=== PATIENT | male | born 1995 | race Caucasian/White ===

== ENCOUNTER 2016-11-30 18:03 | Emergency (ER) | payer BC ==
[~2016-11-30] VITALS: Ht 185.4 cm; Wt 83.6 kg
[2016-11-30 18:06] VITALS: TEMP 36.7; Ht 185.4 cm; Wt 83.6 kg
[2016-11-30] MEDS ORDERED: CEFAZOLIN SOD 1000MG/55 ML D5W IV STA (18:22)
[2016-11-30 18:42] LABS: BASO % 0.7 %; BASO ABS # 0.05 K/uL (0-0.2); COMPLETE YES; EOS % 6.6 %; HEMATOCRIT 37.4 % (42-52); IG% 0.4 %; LYMPH % 19.9 %; LYMPH ABS # 1.46 K/uL (1.2-3.4); MEAN CELL VOLUME 92.3 fL (80-100); MEAN CORPUSCULAR HEMOGLOBIN 31.9 pg (25-34); MEAN CORPUSCULAR HGB CONC 34.5 g/dl (32-36); MEAN PLATELET VOLUME 9.1 fL (7.4-10.4); MONO % 9.2 %; NEUT % 63.2 %; PLATELET COUNT 208 K/uL (130-400); RED BLOOD COUNT 4.05 M/uL (4.7-6.1); WHITE BLOOD COUNT 7.32 K/uL (4.8-10.8)
[2016-11-30 19:01] LABS: BUN/CREATININE RATIO 16.8 (10-20); CALCIUM 8.4 mg/dl (8.5-10.1); CREATININE 0.95 mg/dl (0.60-1.40); POTASSIUM 3.9 mmol/L (3.5-5.1)
--- NOTE | 2016-11-30 19:14 | DIAGNOSTIC IMAGING REPORT ---
RIGHT TIBIA/FIBULA 2 VIEWS ROUTINE CLINICAL HISTORY: 21 years-old Male presenting with right eval for fx Right. TECHNIQUE: Frontal and lateral views of the right lower leg were obtained. COMPARISON: None. FINDINGS: Knee joint and ankle mortise grossly intact. No acute fracture or malalignment. Regional soft tissues within normal limits. No significant degenerative change. IMPRESSION: No acute osseous injury of the right lower leg. Electronically signed by: Benton Srinivasan M.D. 11/30/2016 7:13 PM Dictated Date/Time: 11/30/2016 7:11 PM
--- NOTE | 2016-11-30 19:34 | DIAGNOSTIC IMAGING REPORT ---
RIGHT VENOUS DOPP LOWER EXT UNILAT CLINICAL HISTORY: 21 years-old Male presenting with right leg eval for dvt Right. TECHNIQUE: Real-time grayscale and color and spectral Doppler ultrasound imaging of the veins of the right lower extremity was performed. Compression and augmentation were also utilized. COMPARISON: None. FINDINGS: Right: Common femoral vein: Patent. Femoral vein: Patent. Greater saphenous vein: Patent. Popliteal vein: Patent. Calf veins: Patent. Other: None. IMPRESSION: No evidence of deep venous thrombosis. Electronically signed by: Benton Srinivasan M.D. 11/30/2016 7:32 PM Dictated Date/Time: 11/30/2016 7:31 PM
[2016-11-30] MEDS ORDERED: CEPH500C PO (19:44)
[2016-11-30] MEDS ORDERED: CEPHALEXIN 500MG HOME PACK 1 EA BTL PO ONE (19:45)
[2016-11-30 20:06] VITALS: BP 122/72; PULSE 96; O2SAT 98
--- NOTE | 2016-11-30 20:18 | EMERGENCY ROOM VISIT NOTE ---
History Report prepared by Jeferson: Veena Issa Under the Supervision of: Dr. Harlan Ortiz M.D. First contact with patient: 18:13 Chief Complaint: ANKLE PAIN Stated Complaint: HURT R ANKLE History of Present Illness The patient is a 21 year old male who presents to the Emergency Room with complaints of persistent right leg pain starting 2 days ago at around 1045. The patient was mountain biking to class. He went to jump a curb and his foot slipped and the pedal hit the back of his right leg above his ankle. He has had swelling and pain since. He did not have any other injuries. He went to urgent care yesterday where he had an X-ray of his right ankle which was normal. They checked his Achilles and was told there were no issues. He was told that his pain would improve. He has been using crutches. He has been keeping his leg elevated and applying ice, but has not had any improvement. He has been taking ibuprofen. His foot is swollen. He is having difficulty flexing his foot toward his head. He denies any fever or vomiting. His tetanus is up to date. Source of History: patient Onset: 2 days ago at 1045 Position: leg (right) Quality: other (pain, swelling) Timing: other (persistent) Associated Symptoms: No fevers, No vomiting Note: Pt reports foot swelling. Review of Systems See HPI for pertinent positives & negatives. A total of 10 systems reviewed and were otherwise negative. Past Medical & Surgical Medical Problems: (1) No significant past medical history Family History No pertinent family history stated. Social History Smoking Status: Former Smoker Marital Status: single Occupation Status: [employer] student Current/Historical Medications Scheduled Cephalexin Monohydrate (Keflex), 500 MG PO TID Allergies Coded Allergies: No Known Allergies (Unverified , 11/30/16) Physical Exam Vital Signs Date Time Temp Pulse Resp B/P (MAP) Pulse Ox O2 Delivery O2 Flow Rate FiO2 11/30/16 19:04 96 16 135/83 98 Room Air 11/30/16 18:06 36.7 80 20 156/68 98 Room Air Physical Exam Constitutional: Vital signs reviewed. Eyes: Pupils are equal round reactive to light. Conjunctiva are noninjected. ENT: Pharynx is clear without erythema or exudate. Mucous membranes are moist. Neck supple without meningeal signs. Respiratory: Clear to auscultation bilaterally. Breath sounds are equal bilaterally. Cardiovascular: Regular rate and rhythm. No rubs or gallops. GI: Soft, nondistended and nontender. Bowel sounds are present. Musculoskeletal: No peripheral edema. Tenderness along the posterior lower right calf over the Achilles tendon without signs of tendon defect. Negative Kwon's sign for Achilles injury. Normal distal pulses. No discharge or significant erythema. There are multiple abrasions along the posterior calf. Integumentary: No cyanosis. Neurological: The patient is awake and alert. No focal deficits. Psychiatric: Normal affect. Medical Decision & Procedures ER Provider Diagnostic Interpretation: X-ray results as stated below per interpretation by me and the radiologist. Radiology results as stated below per my review and the radiologist's interpretation: RIGHT TIBIA/FIBULA 2 VIEWS ROUTINE CLINICAL HISTORY: 21 years-old Male presenting with right eval for fx Right. TECHNIQUE: Frontal and lateral views of the right lower leg were obtained. COMPARISON: None. FINDINGS: Knee joint and ankle mortise grossly intact. No acute fracture or malalignment. Regional soft tissues within normal limits. No significant degenerative change. IMPRESSION: No acute osseous injury of the right lower leg. Electronically signed by: Benton Srinivasan M.D. 11/30/2016 7:13 PM Dictated Date/Time: 11/30/2016 7:11 PM RIGHT VENOUS DOPP LOWER EXT UNILAT CLINICAL HISTORY: 21 years-old Male presenting with right leg eval for dvt Right. TECHNIQUE: Real-time grayscale and color and spectral Doppler ultrasound imaging of the veins of the right lower extremity was performed. Compression and augmentation were also utilized. COMPARISON: None. FINDINGS: Right: Common femoral vein: Patent. Femoral vein: Patent. Greater saphenous vein: Patent. Popliteal vein: Patent. Calf veins: Patent. Other: None. IMPRESSION: No evidence of deep venous thrombosis. Electronically signed by: Benton Srinivasan M.D. 11/30/2016 7:32 PM Dictated Date/Time: 11/30/2016 7:31 PM Laboratory Results 11/30/16 18:30 Red Blood Count 4.05, Mean Corpuscular Volume 92.3, Mean Corpuscular Hemoglobin 31.9, Mean Corpuscular Hemoglobin Concent 34.5, Mean Platelet Volume 9.1, Neutrophils (%) (Auto) 63.2, Lymphocytes (%) (Auto) 19.9, Monocytes (%) (Auto) 9.2, Eosinophils (%) (Auto) 6.6, Basophils (%) (Auto) 0.7, Neutrophils # (Auto) 4.63, Lymphocytes # (Auto) 1.46, Monocytes # (Auto) 0.67, Eosinophils # (Auto) 0.48, Basophils # (Auto) 0.05 11/30/16 18:30 Test 11/30/16 18:30 White Blood Count 7.32 K/uL (4.8-10.8) Red Blood Count 4.05 M/uL (4.7-6.1) Hemoglobin 12.9 g/dL (14.0-18.0) Hematocrit 37.4 % (42-52) Mean Corpuscular Volume 92.3 fL (80-100) Mean Corpuscular Hemoglobin 31.9 pg (25-34) Mean Corpuscular Hemoglobin Concent 34.5 g/dl (32-36) Platelet Count 208 K/uL (130-400) Mean Platelet Volume 9.1 fL (7.4-10.4) Neutrophils (%) (Auto) 63.2 % Lymphocytes (%) (Auto) 19.9 % Monocytes (%) (Auto) 9.2 % Eosinophils (%) (Auto) 6.6 % Basophils (%) (Auto) 0.7 % Neutrophils # (Auto) 4.63 K/uL (1.4-6.5) Lymphocytes # (Auto) 1.46 K/uL (1.2-3.4) Monocytes # (Auto) 0.67 K/uL (0.11-0.59) Eosinophils # (Auto) 0.48 K/uL (0-0.5) Basophils # (Auto) 0.05 K/uL (0-0.2) RDW Standard Deviation 43.5 fL (36.4-46.3) RDW Coefficient of Variation 12.8 % (11.5-14.5) Immature Granulocyte % (Auto) 0.4 % Immature Granulocyte # (Auto) 0.03 K/uL (0.00-0.02) Anion Gap 6.0 mmol/L (3-11) Est Creatinine Clear Calc Drug Dose 140.1 ml/min Estimated GFR () 133.0 Estimated GFR (Non- 114.8 BUN/Creatinine Ratio 16.8 (10-20) Calcium Level 8.4 mg/dl (8.5-10.1) Laboratory results as reviewed by me. Medications Administered Medications (Trade) Dose Ordered Sig/Christine Route Start Time Stop Time Status Last Admin Dose Admin Cefazolin Sodium (Ancef 1000mg/55 ml D5W) 1,000 mg NOW STAT IV 11/30/16 18:22 11/30/16 18:24 DC 11/30/16 18:35 1,000 MG ED Course 1813: The patient was evaluated in room A2. A complete history and physical exam was performed. 1821: Cefazolin Sodium 1000 mg IV. 1935: I reevaluated the patient. I discussed the test results with him. He verbalized agreement of the treatment plan. He will be splinted and follow up with ortho. He was discharged home. 1944: Cephalexin Monohydrate 1 homepack PO. Medical Decision This is a 21-year-old male who presents with right leg pain. Differential diagnosis includes wound infection, contusion, DVT, for superficial thrombophlebitis, partial Achilles tendon tear. I did perform perform a limited focused review of portions of the patient's old chart on the electronic medical record. The patient has had no prior visits to this hospital. I did evaluate the patient as noted above. The patient is presenting with right leg pain after he hit the back of his leg with his mountain bike pedal. He has tenderness along the lower portion of his Achilles tendon. He does not have any signs of weakness to the Achilles tendon but I cannot completely rule out a partial tear. It is also possible he may have a wound infection from the abrasions over the tendon. IV access was established. I did treat patient with Ancef IV. I did order and personally review the patient's tib-fib x-rays as described above. There is no evidence of fracture. I did order and review the patient's blood work as noted in the electronic medical record. His white blood cell count is not elevated. I did order a Doppler ultrasound of the right leg. I did review the images myself as well as the radiology report as described above. There is no evidence of DVT. I did discuss the test results with the patient. I did recommend he follow with Dr. Zuñiga of orthopedics. The patient was placed in a posterior mold splint with Ortho-Glass in equinus. He has his own crutches. He was discharged with a prescription for Keflex. He was advised to take anti-inflammatories for pain. Medication Reconcilliation Current Medication List: was personally reviewed by me Blood Pressure Screening Patient's blood pressure: Elevated blood pressure Blood pressure disposition: Referred to PCP Impression Primary Impression: Right leg injury Scribe Attestation The scribe's documentation has been prepared under my direct and personally reviewed by me in its entirety. I confirm that the note above accurately reflects all work, treatment, procedures, and medical decision making performed by me. Departure Information Dispostion Home / Self-Care Prescriptions Cephalexin Monohydrate (Keflex) 500 Mg Cap 500 MG PO TID for 7 Days, #21 CAP Prov: Harlan Ortiz M.D. 11/30/16 Referrals Thai Zuñiga M.D. No Doctor, Assigned Forms HOME CARE DOCUMENTATION FORM, IMPORTANT VISIT INFORMATION Patient Instructions My [facility] Additional Instructions You have been examined and treated today on an emergency basis only. This is not a substitute for, or an effort to provide, complete comprehensive medical care. It is impossible to recognize and treat all injuries or illnesses in a single emergency department visit. It is therefore important that you follow up closely with your physician and Dr. Zuñiga of orthopedics. Call as soon as possible for an appointment. Return for worsening symptoms or if you develop fever, vomiting, chest pain, shortness breath or any other concerning symptoms. Problem Qualifiers Primary Impression: Right leg injury Encounter type: initial encounter Qualified Codes: S89.91XA - Unspecified injury of right lower leg, initial encounter
== END 2016-11-30 20:35 | disposition home or self-care (01) ==
LOC: C.EDB 18:05 → C.EDA 20:35
DX: S89.91XA Unspecified injury of right lower leg, initial encounter (principal); W22.8XXA Striking against or struck by other objects, initial encounter; Y93.55 Activity, bike riding; Z87.891 Personal history of nicotine dependence